=== PATIENT | female | born 1985 | race Hispanic/Latino ===

== ENCOUNTER 2019-12-07 17:27 | Inpatient (IN) | payer BC ==
[~2019-12-07] VITALS: Ht 157.5 cm; Wt 85.3 kg
[2019-12-07] MEDS ORDERED: MISOPROSTOL 200 MCG TABLET ONE (18:37)
[2019-12-07] MEDS ORDERED: LACTATED RINGERS 1000ML 1,000 ML IV ONE (18:37)
[2019-12-07] MEDS ORDERED: LACTATED RINGERS 1000ML 1,000 ML IV PRN (19:03)
[2019-12-07 19:11] VITALS: BP 132/83
[2019-12-07] MEDS ORDERED: LACTATED RINGERS 500 ML 500 ML IV PRN (19:15)
[2019-12-07] MEDS ORDERED: ROPIVACAINE 0.2% 100ML VIAL 100 ML EP SCH (19:15)
[2019-12-07] MEDS ORDERED: MEPERIDINE-PF 50 MG/ML SYG SIVP PRN (19:15)
[2019-12-07] MEDS ORDERED: NALOXONE HCL 0.4 MG/1 ML ML IV PRN (19:15)
[2019-12-07] MEDS ORDERED: EPHEDRINE SULFATE 50 MG/ML AMPULE IVP PRN (19:15)
[2019-12-07] MEDS ORDERED: PROMETHAZINE HCL 25 MG/ML 1ML AMPULE IM PRN (19:15)
[2019-12-07 19:19] LABS: HEMATOCRIT 34.9 % (36-48); MEAN CORPUSCULAR HEMOGLOBIN 30.2 pg (27.0-33.0); MEAN CORPUSCULAR HGB CONC 34.1 g/dL (32.0-36.0); MEAN CORPUSCULAR VOLUME 88.6 fL (79-99); RED BLOOD CELL COUNT(AUTO) 3.94 MIL/uL (4.00-5.50); RED CELL DISTRIBUTION WIDTH 13.2 % (11.0-15.5); WHITE BLOOD COUNT (AUTO) 7.4 K/uL (4.8-10.8)
[2019-12-07 19:28] LABS: APPEARANCE,URINE Turbid (CLEAR); BILIRUBIN,URINE Negative (NEGATIVE); COLOR,URINE Yellow (YELLOW); GLUCOSE, URINE (UA) Negative (NEGATIVE); KETONES,URINE Trace mg/dL (NEGATIVE); LEUKOCYTE ESTERASE ,URINE Moderate (NEGATIVE); NITRATE,URINE Negative (NEGATIVE); OCCULT BLOOD,URINE Large (NEGATIVE); PROTEIN,URINE POS 1+ mg/dL (NEGATIVE)
[2019-12-07 19:41] LABS: BACTERIA,URINE Moderate /HPF (None Seen); CALCIUM OXALATE CRYSTALS,UR Moderate /LPF (None Seen); MUCUS,URINE Moderate LPF (None Seen); RBC,URINE 26-50 /HPF (0-1); SQUAMOUS EPITHELIAL CELL,UR Few /HPF (0-2)
[2019-12-07] MEDS ORDERED: MISOPROSTOL 200 MCG TABLET VG SCH (21:00)
[2019-12-08] MEDS ORDERED: OXYTOCIN-LR 20 UNITS/1000 ML 1,000 ML IV ONE ×2 (01:02→02:10)
[2019-12-08] MEDS ORDERED: LANOLIN 30GM OINTMENT TP PRN (03:00)
[2019-12-08] MEDS ORDERED: ACETAMINOPHEN-CODEINE 300/30MG TAB PO PRN (03:00)
[2019-12-08] MEDS ORDERED: ACETAMINOPHEN 325 MG TAB PO PRN (03:00)
[2019-12-08] MEDS ORDERED: WITCH HAZEL 1 PAD TP PRN (03:00)
[2019-12-08] MEDS ORDERED: BENZOCAINE/LANOLIN/ALOE VERA 60 ML AEROSOL TP PRN (03:00)
[2019-12-08] MEDS ORDERED: IBUPROFEN 600 MG TABLET PO PRN (03:00)
[2019-12-08] MEDS ORDERED: METHY250 PO (03:59)
[2019-12-08 04:19] VITALS: BP 121/79
[2019-12-08 07:21] VITALS: BP 127/86
--- NOTE | 2019-12-08 08:05 | NUR ---
PATIENT ASSESSED AND PATIENT IS STABLE AND HAS IV INFUSING WITH LR WITH PITOCIN. PATIENT STATES HAVING PAIN OF 4 AND WILL MEDICATE WITH MOTRIN. PIV INFUSING WELL TO LH WITH 18G PIV.
[2019-12-08] MEDS ORDERED: DOCUSATE SODIUM 100 MG CAP PO SCH (09:00)
--- NOTE | 2019-12-08 09:20 | NUR ---
SS referral for demise 16week SW visited pt., pt's mother at bedside and condolences offered by this worker. Pt. is sitting up in bed, calm and cooperative. Pt. telephoned her spouse and placed him on speaker phone during this worker's visit. Pt. reported that this is her second loss, first being 13y ago. Pt. stated that they had already contacted home for baby. SW provided emotional/grief counseling to pt., spouse and her mother; family grateful for this worker's visit. SW offered to contact [facility] for prayer; pt. receptive. Pt. provided with Grief Literature and resources. Family voiced no other needs. ALEJANDRO contacted [employer] [facility] and referral made for prayer/visitation. Addendum: 12/08/19 at 1559 by MIGUEL ÁNGEL LOPEZ Amended: Links added.
--- NOTE | 2019-12-08 10:30 | NUR ---
DR. HERNANDEZ RETURNED CALL ON STUDIES TO BE DONE AND LAB'S CALL RE BIOPSY OF FETUS LEG. DR. HERNANDEZ INDICATED STUDY COULD BE DONE WITHOUT AMPUTATING BABIES LEG.
[2019-12-08 11:13] VITALS: BP 130/77
--- NOTE | 2019-12-08 11:15 | NUR ---
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 PATIENT WAS MADE AWARE OF NEED TO SELECT HOME AND INDICATED WANTING [facility] HOME.
--- NOTE | 2019-12-08 13:00 | NUR ---
PATIENT WAS DISCHARGED AND INDICATED UNDERSTANDING INSTRUCTIONS GIVEN. SCRIPT FOR MOTRIN GIVEN AND INSTRUCTED ON DOSAGE AND FREQUENCY.
--- NOTE | 2019-12-08 13:50 | NUR ---
PATIENT WAS TAKEN VIA W/C TO FAMILY VEHICLE IN STABLE CONDITION.
[2019-12-09 08:14] LABS: HEPATITIS Bs ANTIGEN SCREEN P Negative (Negative)
--- NOTE | 2019-12-09 09:50 | NUR ---
Late Entry: SW also provided pt. with contact information for Bereavement Support for Parents Who Have Experienced Loss @ [facility] under the direction of Chaplain Padilla Parkinson [phone]
== END 2019-12-08 13:50 | disposition home or self-care (01) | DRG 770 ==
LOC: LDH 17:27 → OBSVTOIN 17:27 → WSH 12-08 04:10
PROVIDERS: ADMIT Obstetrics & Gynecology; ATTEND Obstetrics & Gynecology
PROC: 10D17ZZ Extraction of Products of Conception, Retained, Via Natural or Artificial Opening (ICD-10-PCS; principal; 2019-12-07)
PROC: 0UCC7ZZ Extirpation of Matter from Cervix, Via Natural or Artificial Opening (ICD-10-PCS; 2019-12-07)
DX: O02.1 Missed abortion (principal); Z3A.16 16 weeks gestation of pregnancy
CPT/HCPCS: 36415; 81001; 85027; 86592; 86850; 86900; 86901; 87077; 87088; 87186; 87340; G0378; J2175; J2550; J2590; J7120